=== PATIENT | male | born 1990 | race Caucasian/White ===

== ENCOUNTER 2017-09-02 16:25 | Emergency (ER) | payer OTHER ==
--- NOTE | 2017-09-02 17:23 | EDPHY ---
HPI/HX/ROS/PE/MDM Narrative: CHIEF COMPLAINT: Left testicle pain HPI: The patient is a 26 y/o male arriving with his girlfriend complaining of persistent left testicle pain over the last 2 weeks. He cannot identify an obvious precipitating factor or trauma and feels the pain "came out of nowhere. " Last night he developed associated nausea. His pain is not worse with movement or position. He denies associated dysuria, rash, lesions, fever, abdominal pain, or other complaints. One year ago he had right testicle and groin pain that resolved without intervention. He is normally healthy. REVIEW OF SYSTEMS: Aside from elements discussed in the HPI, a comprehensive 10-point review of systems was reviewed and is negative. PMH: Denies SOCIAL HISTORY: Girlfriend at bedside. Lives in [place]. Employed. PHYSICAL EXAM: General:Patient is alert, in no acute distress. ENT:Eyes are normal to inspection. ENT inspection normal. Neck: Normal inspection. Full range of motion. Respiratory:No respiratory distress. Cardiovascular: Normal cap refill. Abdomen:The abdomen is nontender to palpation. There are no peritoneal signs. : Tenderness to left hemiscrotum, no swelling, erythema, heat, or lesions. Skin: Normal color. No rash. Warm and dry. Extremities: Normal appearance. Full range of motion. Neuro: Oriented x3. Normal motor function. Normal sensory function. ED Course: This is a healthy 26 y/o male who presents with a 2-week history of left testicle pain now associated with nausea. He has left hemiscrotum tenderness without rash, erythema, or lesions. Abdomen is benign. Testicle US revealed left varicocele with no evidence of torsion or mass. UA does not indicate infection. Patient will be discharged with referral to urology and standard varicocele care instructions. Return precautions discussed. He is comfortable with plan for discharge. - Data Points Imaging Results: Imaging Impressions Testicular Ultrasound 09/02/17 16:41 Impression: 1. Normal sonographic appearance of each testis. 2. Left-sided varicocele. Findings were discussed with Ulises Garcia MD at 17:18, on 09/02/2017. Imaging: Discussed imaging studies w/ call center support consultant Radiologist Laboratory Results: 09/02/17 17:20 Urine Color JOSE MANUEL Urine Appearance HAZY Urine pH 6.0 (5.0-7.5) Ur Specific Gervais 1.024 (1.002-1.030) Urine Protein 1+ H (NEGATIVE) Urine Ketones TRACE H (NEGATIVE) Urine Blood NEGATIVE (NEGATIVE) Urine Nitrate NEGATIVE (NEGATIVE) Urine Bilirubin NEGATIVE (NEGATIVE) Urine Urobilinogen NEGATIVE EU EU (0.2-1.0) Ur Leukocyte Esterase NEGATIVE (NEGATIVE) Urine RBC 5-10 /hpf H /hpf (0-3) Urine WBC 1-3 /hpf /hpf (0-3) Ur Epithelial Cells TRACE /lpf /lpf (NONE-1+) Urine Mucus TRACE /lpf /lpf (NONE-1+) Urine Glucose NEGATIVE (NEGATIVE) General Time Seen by Provider: 09/02/17 16:39 Initial Vital Signs: Initial Vital Signs Temperature (C) 36.6 C 09/02/17 16:31 Heart Rate 59 L 09/02/17 16:31 Respiratory Rate 17 09/02/17 16:31 Blood Pressure 116/71 09/02/17 16:31 O2 Sat (%) 97 09/02/17 16:31 O2 Delivery Mode Room Air Allergies/Adverse Reactions: No Known Allergies Allergy (Unverified 09/02/17 16:31) Home Medications: Medication Instructions Recorded NK [No Known Home Meds] 09/02/17 Departure - Departure Disposition: Home, Routine, Self-Care Clinical Impression: Left varicocele Condition: Good Instructions: Varicocele (ED), Testicle Pain (ED) Additional Instructions: 1. Take 600mg ibuprofen every 8 hours as needed for pain over the next few days. 2. You can try supportive underwear if helpful for pain. 3. Follow up with urologist in the next week. 4. Return to the ED for any worsening of condition. Referrals: GABRIEL VO MD [Primary Care Provider] - As per Instructions Clement Salas MD [Medical Doctor] - As per Instructions Report Scribed for: Ulises Garcia Report Scribed by: Marti aRmos Date of Report: 09/02/17 Time of Report: 17:30 Physician Review and Approval Statement: Portions of this note were transcribed by an ED scribe. I personally performed the history, physical exam, and medical decision making; and confirm the accuracy of the information in the transcribed note.
[2017-09-02 18:03] VITALS: BP 114/70
[2017-09-03 12:35] LABS: GC AMPLIFICATION GENPROBE NEGATIVE (NEGATIVE)
== END 2017-09-02 18:03 | disposition home or self-care (01) ==
DX: I86.1 Scrotal varices (principal)